=== PATIENT | female | born 1990 | race Two or more races ===

== ENCOUNTER 2025-04-18 16:44 | Emergency (ER) | payer MEDICAID, OTHER ==
[~2025-04-18] VITALS: Ht 162.6 cm; Wt 45.4 kg
--- NOTE | 2025-04-18 18:17 | ED.PDOC ---
Back pain HPI HPI Comments Peggy Hills is a 34-year-old female with past medical history of chronic back pain due to Back injury on . The patient was brought via EMS to the ED with the chief complain of back pain, stabbing/electric-like pain,localized in the lumbar area, that irradiates to the legs and feet, associated with numbness and tingling sensation. On further questioning the patient reports she has been followed up by pain management specialty and, 3 days ago she received an intra-spinal "steroid injection", after this she presented numbness, tingling and inability to move from the waist down, she was told that this was temporary. Today, the patient reports increased in the pain level 10/10 with, increase in the numbness from waist down that prevent her from walk, this prompted her visit to the ED. Chief Complaint: Back Pain Time Seen by MD: 17:42 Reviewed Notes: Nurses Notes, Medications, Allergies Allergies: Coded Allergies: NO KNOWN ALLERGIES (Unverified , 04/18/25) Information Source: Patient Mode of Arrival: EMS Timing: Days Duration: Since onset Location of Back pain: (B) Lumbar Radiates to: Anterior: (R) Calf, (R) Thigh, Other (Both leg and feet) Severity: Severe Quality: Sharp, Stabbing, Other (Electric pain) Onset: Other (After spine pain injection administration. 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 Family History Family History: Reviewed,noncontributory to illness Social History Smoker: Non-Smoker Alcohol: Denies ETOH Use Drugs: Marijuana (Per the patient is for pain control) Lives In: Home Constitutional: reports: weakness; denies: chills, diaphoresis, fatigue, fever, malaise, sweats, others EENTM: denies: blurred vision, double vision, ear bleeding, ear discharge, ear drainage, ear pain, ear ringing, eye pain, eye redness, hearing loss, mouth pain, mouth swelling, nasal discharge, nose bleeding, nose congestion, nose pain, photophobia, tearing, throat pain, throat swelling, voice changes, others Respiratory: denies: cough, hemoptysis, orthopnea, SOB at rest, shortness of breath, SOB with excertion, stridor, wheezing, others Cardiovascular: denies: chest pain, dizzy spells, diaphoresis, Dyspnea on exertion, edema, irregular heart beat, left arm pain, lightheadedness, palpitations, PND, syncope, others Gastrointestinal: denies: abdomen distended, abdominal pain, blood streaked bowels, constipated, diarrhea, dysphagia, difficulty swallowing, hematemesis, melena, nausea, poor appetite, poor fluid intake, rectal bleeding, rectal pain, vomiting, others Genitourinary: denies: abnormal vagina bleeding, burning, dyspareunia, dysuria, flank pain, frequency, hematuria, incontinence, pain, , vagina discharge, urgency, others Neurological: denies: dizziness, fainting, headache, left sided numbness, left sided weakness, numbness, paresthesia, pre-existing deficit, right sided numbness, right sided weakness, seizure, speech problems, tingling, tremors, weakness, others Musculoskeletal: reports: back pain, others (Bilateral from waist down pain and numbness and tingling) Integumetry: denies: bruises, change in color, change in hair/nails, dryness, laceration, lesions, lumps, rash, wounds, others Allergic/Immunocompromised: denies: Difficulty Healing, Frequent Infections, Hives, Itching, others Hematologic/Lymphatic: denies: anemia, blood clots, easy bleeding, easy bruising, swollen glands, others Endocrine: denies: excessive hunger, excessive sweating, excessive thirst, excessive urination, flushing, intolerance to cold, intolerance to heat, unexplained weight gain, unexplained weight loss, others Psychiatric: denies: anxiety, bipolar disorder, depression, hopeless, panic disorder, schizophrenia, sleepless, suicidal, others Physical Exam General Appearance: Moderate Distress HEENT: Normal ENT Inspection, Pharynx Normal, TMs Normal Neck: Full Range of Motion, Non-Tender, Normal, Normal Inspection Respiratory: Chest Non-Tender, Lungs Clear, No Accessory Muscle Use, No Respiratory Distress, Normal Breath Sounds Cardiovascular: No Edema, No JVD, No Murmur, No Gallop, Normal Peripheral Pulses, Regular Rate/Rhythm Breast Exam: Deferred Gastrointestinal: No Organomegaly, Non Tender, No Pulsatile Mass, Normal Bowel Sounds, Soft Genitalia: Deferred Pelvic: Deferred Rectal: Deferred Extremities: Decreased range of motion, Tender (Severe tenderness to palpation at lumbar spine, ROM limited by pain.), Other Neurologic: Motor Weakness, Other (Patient cannot walk due to bilateral leg w eakness and numbness. Decrease sensation 2/5 from the waist down. ) Cerebellar Function: NOT DONE Reflexes: Other (Decreased) Skin: Dry, Normal Color, Warm Lymphatic: No Adenopathy Was a procedure done? Was a procedure done?: No Back Pain Differential Dx Differential Diagnosis: Other Other Differential Diagnosis #Lumbar polyradiculopathy #Spine injury #Spinal stenosis X-Ray, Labs, Meds, VS Vital Signs Date Time Temp Pulse Resp B/P (MAP) Pulse Ox O2 Delivery O2 Flow Rate FiO2 04/19/25 00:32 80 16 114/66 04/19/25 00:01 98.1 80 16 114/66 (82) 96 98.1 04/18/25 22:37 74 18 119/70 04/18/25 22:07 78 18 125/71 04/18/25 22:00 78 20 125/71 (89) 96 04/18/25 19:54 98.4 66 16 119/80 (93) 96 98.4 04/18/25 19:30 Room Air* 0 21 04/18/25 18:15 Room Air* 0 21 04/18/25 16:51 98.2 103 22 127/81 97 98.2 Lab Test 04/18/25 21:20 Range/Units White Blood Count 10.8 4.4-10.8 10^3/uL Red Blood Count 4.26 4.0-5.20 10^6/uL Hemoglobin 14.2 12.2-16.2 g/dL Hematocrit 40.1 36.0-46.0 % Mean Corpuscular Volume 94.2 80.0-100.0 fL Mean Corpuscular Hemoglobin 33.2 H 28.0-32.0 pg Mean Corpuscular Hemoglobin Concent 35.3 32.0-36.0 g/dL Red Cell Distribution Width 12.6 11.8-14.3 % Platelet Count 238 140-450 10^3/uL Mean Platelet Volume 8.8 6.9-10.8 fL Neutrophils (%) (Auto) 77.1 37.0-80.0 % Lymphocytes (%) (Auto) 16.6 10.0-50.0 % Monocytes (%) (Auto) 5.5 0.0-12.0 % Eosinophils (%) (Auto) 0.3 0.0-7.0 % Basophils (%) (Auto) 0.5 0.0-2.0 % Neutrophils # (Auto) 8.3 1.6-8.6 10 ^3/uL Lymphocytes # (Auto) 1.8 0.4-5.4 10 ^3/uL Monocytes # (Auto) 0.6 0-1.3 10 ^3/uL Eosinophils # (Auto) 0 0-0.8 10 ^3/uL Basophils # (Auto) 0.1 0-0.2 10 ^3/uL Nucleated Red Blood Cells 0.0 % Sodium Level 139 136-145 mmol/L Potassium Level 3.7 3.5-5.1 mmol/L Chloride Level 109 H 98-107 mmol/L Carbon Dioxide Level 21 20-31 mmol/L Anion Gap 9 5-15 Blood Urea Nitrogen 8 L 9-23 mg/dL Creatinine 0.81 0.550-1.02 mg/dL Glomerular Filtration Rate Calc 99 >90 mL/min BUN/Creatinine Ratio 9.9 L 10.0-20.0 Serum Glucose 98 74-106 mg/dL Calcium Level 9.5 8.7-10.4 mg/dL C-Reactive Protein High Sensitivity < 0.02 <1.0 mg/dL X-Ray, Labs, Meds, VS Comment The patient was re-evaluated, the patient reports her pain is 8/10 The patient will be admitted for further assessment and management. + Time of 1ST Reevaluation: 19:12 Reevaluation 1ST: Unchanged Patient Education/Counseling: Diagnosis, Treatment, Prognosis, Need For Follow Up Family Education/Counseling: Diagnosis, Treatment, Prognosis, Need For Follow Up SEPSIS Sepsis Screen Date sepsis recognized/suspect: Apr 18, 2025 Time Sepsis recognized/suspect: 1656 Recent Procedure: No On Antibiotic Therapy: No Respiratory Rate >20: No Heart Rate >90: Yes Temp<36 C (96.8 F) or >38.3 C: No SBP <90 or MAP <65 mmHG: No New Acute Mental Status Change: No Is the patient on CPAP, BIPAP,: No Physician Orders Ls Spine Wo Contrast (04/18/25 19:25) Test, Urine (04/18/25 19:32) * Neurology Consult (04/18/25 19:47) Imaging Transfer Request (04/18/25 23:14) Vital Signs Date Time Temp Pulse Resp B/P (MAP) Pulse Ox O2 Delivery O2 Flow Rate FiO2 04/19/25 00:32 80 16 114/66 04/19/25 00:01 98.1 80 16 114/66 (82) 96 98.1 04/18/25 22:37 74 18 119/70 04/18/25 22:07 78 18 125/71 04/18/25 22:00 78 20 125/71 (89) 96 04/18/25 19:54 98.4 66 16 119/80 (93) 96 98.4 04/18/25 19:30 Room Air* 0 21 04/18/25 18:15 Room Air* 0 21 04/18/25 16:51 98.2 103 22 127/81 97 98.2 Laboratory Tests Test 04/18/25 21:20 White Blood Count 10.8 10^3/uL (4.4-10.8) Departure 1 Departure Time of Disposition: 19:35 Impression: Primary Impression: Lumbar radiculopathy Additional Impression: Musculoskeletal pain Disposition: ADMITTED INPATIENT Admit to: Med Surg Condition: Fair Comments Goals of care discussed with the patient > 35 min. Discussed plan of care with Dr. Veliz Code status: Full code PCP: Plan discussed with: Patient, the patient agrees with the admission plan. Attestation: I saw and evaluated the patient. Patient reporting significant bilateral lower extremity weakness. No MRI available at this facility this time to rule out cauda equina syndrome. Patient transferred to [facility] for further treatment and evaluation. NIKHIL DEWITT MD Critical Care Note Critical Care Time?: No Stability Stability form required: No Stable for transfer: N/A Unstable for transfer: N/A Heart Score Heart Score: Heart Score Response (Comments) Value History N/A 0 EKG N/A 0 Age N/A 0 Risk Factors N/A 0 Troponin N/A 0 Total 0 MANE RODGERS RESIDENT Apr 18, 2025 18:17 NIKHIL DEWITT MD Apr 20, 2025 04:17
[2025-04-18] MEDS: CYCLOBENZAPRINE HCL 10 MG TAB PO ONE (18:43)
[2025-04-18] MEDS: KETOROLAC TROMETH 30 MG/ML 1ML VIAL IV ONE (18:43)
[2025-04-18] MEDS: LIDOCAINE 5% TOPICAL PATCH TOP ONE (18:43)
[2025-04-18 21:29] LABS: Hematocrit 40.1 % (36.0-46.0); Hemoglobin 14.2 g/dL (12.2-16.2); Mean Corpuscular Hemoglobin 33.2 pg (28.0-32.0); Mean Corpuscular Volume 94.2 fL (80.0-100.0); Nucleated Red Blood Cells % 0.0 %
[2025-04-18 21:39] LABS: Potassium 3.7 mmol/L (3.5-5.1); Sodium 139 mmol/L (136-145)
[2025-04-18 21:40] LABS: Anion Gap 9 (5-15); Calcium 9.5 mg/dL (8.7-10.4); Carbon Dioxide 21 mmol/L (20-31)
[2025-04-18 21:45] LABS: BUN/Creatinine Ratio 9.9 (10.0-20.0); Glucose 98 mg/dL (74-106)
[2025-04-18 21:47] LABS: Chloride 109 mmol/L (98-107)
[2025-04-18 21:48] LABS: Blood Urea Nitrogen 8 mg/dL (9-23)
[2025-04-18] MEDS: SODIUM CHLORIDE 0.9% 1,000 ML IV ONE (22:07)
[2025-04-18] MEDS: MORPHINE SULFATE INJ 2 MG/ml SYRG IV ONE (22:07)
--- NOTE | 2025-04-18 22:40 | DVH ---
CLINICAL HISTORY: Spine injury TECHNIQUE: CT of the lumbar spine was performed without intravenous contrast. This exam was performed according to our departmental dose optimization program. Up-to-date CT equipment and radiation dose reduction techniques are utilized as appropriate. 12.54 CTDI: 12.54 DLP: 456.11 WID: COMPARISON: None FINDINGS: There are 5 [id number] lumbar type vertebral bodies. Alignment is maintained. Vertebral body he ights are maintained. Disc spaces preserved. There is no acute fracture. There is no high-grade neura l foraminal or spinal stenosis. Urinary bladder is moderately distended. No acute abnormality in the visualized abdomen. IMPRESSION: 1. No acute fracture or traumatic malalignment.
[2025-04-19 00:01] VITALS: TEMP 98.1; O2SAT 96
[2025-04-19 00:32] VITALS: BP 114/66; PULSE 80; RESP 16
[2025-04-19] MEDS: MORPHINE SULFATE INJ 2 MG/ml SYRG IV ONE (00:32)
== END 2025-04-19 00:33 | disposition short-term general hospital (02) ==
LOC: EDBD 16:44 → ER 16:44
DX: M54.16 Radiculopathy, lumbar region (principal); M79.18 Myalgia, other site; Z98.890 Other specified postprocedural states
CPT/HCPCS: 36415; 72131; 80048; 85025; 86141; 96361; 96374; 96375; 96376; 99285; J1885; J2270; J7030